=== PATIENT | female | born 1970 | race Two or more races ===

== ENCOUNTER 2019-10-06 05:50 | Day surgery (SDC) | payer OTHER ==
[~2019-10-06 05:50] MED LIST: COZAAR100 MG PO; LEVO-T25 MCG PO; SIMVASTATIN5 MG PO; TOPROL XL25 M1 PO
== END 2019-10-06 18:35 | disposition home or self-care (01) ==
LOC: CIR.AMB 05:50
PROVIDERS: Plastic Surgery
PROC: 0HBV0ZZ Excision of Bilateral Breast, Open Approach (ICD-10-PCS; principal; 2019-10-06 09:30)
DX: N62 Hypertrophy of breast (principal)